=== PATIENT | female | born 1935 | race Caucasian/White ===

== ENCOUNTER 2024-09-17 10:47 | Inpatient (IN) | payer MEDICARE, BC ==
[~2024-09-17] VITALS: Ht 152.4 cm; Wt 51.3 kg
[2024-09-17 10:13] VITALS: BP 143/61
[2024-09-17 10:49] VITALS: BP 143/61
[2024-09-17 16:30] VITALS: BP 107/46; TEMP 97.6; O2SAT 94
[2024-09-17] MEDS ORDERED: CARV6.25 PO (16:37)
[2024-09-17] MEDS ORDERED: ACET-2154 PO (16:37)
[2024-09-17] MEDS ORDERED: ENOX30DI5 SQ (16:37)
[2024-09-17] MEDS ORDERED: ONDA4VIA52 IV (16:37)
[2024-09-17] MEDS ORDERED: PETR113P TP (16:37)
[2024-09-17] MEDS ORDERED: CEPH500C2 PO (16:37)
[2024-09-17] MEDS ORDERED: ATOR10TA PO (16:37)
[2024-09-17] MEDS ORDERED: CARB1TAB21 PO (16:37)
[2024-09-17] MEDS ORDERED: REMEDY ESSENTIAL ZINC PASTE 113 GM TOP PRN (18:00)
[2024-09-17] MEDS ORDERED: ONDANSETRON 4 MG/2 ML VIAL IV PRN (20:45)
[2024-09-17 20:51] VITALS: BP 110/69; TEMP 97.9; O2SAT 93
[2024-09-17] MEDS: ATORVASTATIN 10 MG TABLET PO SCH (21:36)
[2024-09-17] MEDS: TRAMADOL HCL 50 MG TABLET PO PRN (21:36)
[2024-09-17] MEDS: CEphaleXIN 500 MG CAPSULE PO SCH (21:36)
[2024-09-18 06:00] VITALS: BP 139/58; TEMP 97.8; O2SAT 93
[2024-09-18 08:00] VITALS: BP 151/66; TEMP 98.3; O2SAT 95
[2024-09-18] MEDS: CARBIDOPA/LEVODOPA 25-100MG TABLET PO SCH (09:02)
[2024-09-18] MEDS: CARVEDILOL 6.25 MG TABLET PO SCH (09:04)
[2024-09-18] MEDS: ENOXAPARIN SODIUM 30 MG/0.3 ML DISP.SYRIN SQ SCH (09:07)
[2024-09-18] MEDS ORDERED: MIRT-93 PO (11:06)
[2024-09-18] MEDS ORDERED: PRED5DRO24 RIGHTEYE (11:06)
[2024-09-18] MEDS ORDERED: LATA7.5D RIGHTEYE (11:06)
[2024-09-18] MEDS ORDERED: ATRO2DRO4 RIGHTEYE (11:06)
[2024-09-18] MEDS: ATROPINE SULFATE 1% OPHT DROP 2 ML RIGHTEYE SCH (12:55)
[2024-09-18] MEDS: prednisoLONE ACET 1% OPHT DROP 5 ML BOTTLE RIGHTEYE SCH (12:56)
[2024-09-18 16:15] VITALS: BP 113/46; TEMP 98.1; O2SAT 97
[2024-09-18 20:03] VITALS: BP 126/78; TEMP 98.1; O2SAT 93
[2024-09-18] MEDS: MIRTAZAPINE 15 MG TABLET PO SCH (20:14)
[2024-09-18] MEDS: LATANOPROST OPHT DROP 2.5 ML BOTTLE EACHEYE SCH (20:16)
[2024-09-18] MEDS ORDERED: LATANOPROST OPHT DROP 2.5 ML BOTTLE RIGHTEYE SCH (21:00)
[2024-09-19 06:00] VITALS: BP 150/67; TEMP 97.8; O2SAT 95
[2024-09-19 08:00] VITALS: BP 139/70; TEMP 97.2; O2SAT 97
[2024-09-19 15:55] VITALS: BP 119/52; TEMP 98.4; O2SAT 97
[2024-09-19] MEDS: ENSURE ENLIVE (VAN) 240 ML LIQUID PO SCH (17:47)
[2024-09-19 20:00] VITALS: BP 157/60; TEMP 97.5; O2SAT 96
[2024-09-20 07:02] VITALS: BP 164/60
[2024-09-20 07:18] VITALS: BP 159/56; TEMP 98; O2SAT 97
[2024-09-20 08:00] VITALS: BP 147/53; TEMP 97.4; O2SAT 97
[2024-09-20 16:00] VITALS: BP 105/44; TEMP 97.8; O2SAT 97
[2024-09-20 20:07] VITALS: BP 97/35; TEMP 97.9; O2SAT 93
[2024-09-21] MEDS: BISACODYL 5 MG TABLET.DR PO PRN (02:31)
[2024-09-21] MEDS: ACETAMINOPHEN 500 MG TABLET PO PRN (02:32)
[2024-09-21 05:48] VITALS: BP 145/57; TEMP 97.8; O2SAT 94
[2024-09-21 07:49] VITALS: TEMP 98
[2024-09-21 15:09] VITALS: TEMP 97.6
[2024-09-21 20:05] VITALS: BP 114/44; TEMP 97.6; O2SAT 95
[2024-09-22 06:03] VITALS: BP 126/52; TEMP 97.8; O2SAT 95
[2024-09-22 08:00] VITALS: BP 157/90; TEMP 97.8; O2SAT 96
[2024-09-22 15:50] VITALS: BP 107/43; TEMP 97.3; O2SAT 97
[2024-09-22 20:00] VITALS: BP 121/52; TEMP 97.9; O2SAT 95
[2024-09-23 06:00] VITALS: BP 157/69; TEMP 97.7; O2SAT 95
[2024-09-23 07:06] LABS: BASOPHILS # (AUTO) 0.2 K/UL (0.0-0.2); BASOPHILS % (AUTO) 0.8 % (0.0-2.0); EOSINOPHILS # (AUTO) 0.1 K/uL (0.0-0.7); EOSINOPHILS % (AUTO) 0.3 % (0.0-7.0); HEMATOCRIT 31.3 % (31.2-41.9); HEMOGLOBIN 10.8 g/dL (10.9-14.3); LYMPHOCYTES # (AUTO) 5.6 K/uL (0.8-4.8); LYMPHOCYTES % (AUTO) 27.5 % (20.5-51.5); MEAN CORPUSCULAR HEMOGLOBIN 29.7 uug (24.7-32.8); MEAN CORPUSCULAR HGB CONC 35 g/dL (32.3-35.6); MEAN CORPUSCULAR VOLUME 85.7 fL (75.5-95.3); MONOCYTES # (AUTO) 1.3 K/uL (0.1-1.30); MONOCYTES % (AUTO) 6.2 % (0.0-11.0); NEUTROPHILS # (AUTO) 13.2 K/uL (1.8-8.9); NEUTROPHILS % (AUTO) 65.2 % (38.5-71.5); PLATELET COUNT (AUTO) 438 K/uL (179-408); RED BLOOD CELL COUNT(AUTO) 3.65 MIL/uL (3.63-4.92); RED CELL DISTRIBUTION WIDTH 13.9 % (12.3-17.7); WHITE BLOOD COUNT (AUTO) 20.2 K/uL (3.8-11.8)
[2024-09-23 07:07] LABS: DIFFERENTIAL COMMENT 1
[2024-09-23 07:15] LABS: CALCIUM 9.2 mg/dL (8.5-10.1); CARBON DIOXIDE 28 mmol/L (21-32); CHLORIDE 104 mmol/L (98-107); GLUCOSE 113 mg/dL (74-106); POTASSIUM 4.7 mmol/L (3.5-5.1); SODIUM SERUM 141 mmol/L (136-145); UREA NITROGEN, BLOOD 29 mg/dL (7-18)
[2024-09-23 08:00] VITALS: BP 111/31; TEMP 97.6; O2SAT 97
[2024-09-23 16:00] VITALS: BP 99/46; TEMP 97.7; O2SAT 97
[2024-09-23 16:32] LABS: *BILIRUBIN,URIN NEGATIVE (NEGATIVE); *BLOOD, URINE 2+ (NEGATIVE); *CLARITY,URINE CLOUDY (CLEAR); *COLOR,URINE YELLOW (YELLOW); *KETONES,URINE NEGATIVE (NEGATIVE); *PROTEIN,URINE 2+ (NEGATIVE); LEUKOCYTE ESTERASE ,URINE 3+ (NEGATIVE); NITRITE, URINE POSITIVE (NEGATIVE); PH,URINE 7.5 (5.0-8.0); UGLUCOSE NEGATIVE (NEGATIVE)
[2024-09-23 16:44] LABS: BACTERIA,URINE MANY /HPF (NONE SEEN); RBC,URINE 50-80 /HPF (0-3); SQUAMOUS EPITHELIAL CELL,UR FEW /HPF (NONE SEEN); WBC,URINE TNTC /HPF (0-3)
[2024-09-23] MEDS ORDERED: CEFTRIAXONE 500 MG VIAL IV SCH (17:00)
[2024-09-23] MEDS: CEFTRIAXONE 1 G in IV DEXTROSE 5% 50 ML IV SCH (17:50)
[2024-09-23 21:44] VITALS: BP 124/58; TEMP 98.3; O2SAT 99
[2024-09-24 05:41] VITALS: BP 125/44; TEMP 98.1; O2SAT 94
[2024-09-24 07:50] VITALS: BP 128/53; TEMP 97.1; O2SAT 93
[2024-09-24 07:56] LABS: BASOPHILS # (AUTO) 0.1 K/UL (0.0-0.2); BASOPHILS % (AUTO) 0.4 % (0.0-2.0); EOSINOPHILS # (AUTO) 0.1 K/uL (0.0-0.7); EOSINOPHILS % (AUTO) 0.4 % (0.0-7.0); HEMATOCRIT 24.7 % (31.2-41.9); HEMOGLOBIN 8.8 g/dL (10.9-14.3); LYMPHOCYTES # (AUTO) 3.4 K/uL (0.8-4.8); LYMPHOCYTES % (AUTO) 26.8 % (20.5-51.5); MEAN CORPUSCULAR HEMOGLOBIN 30.5 uug (24.7-32.8); MEAN CORPUSCULAR HGB CONC 36 g/dL (32.3-35.6); MEAN CORPUSCULAR VOLUME 85.9 fL (75.5-95.3); MONOCYTES # (AUTO) 0.9 K/uL (0.1-1.30); MONOCYTES % (AUTO) 6.8 % (0.0-11.0); NEUTROPHILS # (AUTO) 8.4 K/uL (1.8-8.9); NEUTROPHILS % (AUTO) 65.6 % (38.5-71.5); PLATELET COUNT (AUTO) 334 K/uL (179-408); RED BLOOD CELL COUNT(AUTO) 2.87 MIL/uL (3.63-4.92); RED CELL DISTRIBUTION WIDTH 13.9 % (12.3-17.7); WHITE BLOOD COUNT (AUTO) 12.8 K/uL (3.8-11.8)
[2024-09-24 08:09] LABS: DIFFERENTIAL COMMENT 1
[2024-09-24] MEDS: NUTRISOURCE FIBER 4 GM PACKET PO SCH (09:17)
[2024-09-24 16:08] VITALS: BP 104/61; TEMP 97.8; O2SAT 93
[2024-09-24 21:38] VITALS: BP 105/45; TEMP 99; O2SAT 94
[2024-09-25 06:38] VITALS: BP 106/45; TEMP 98.3; O2SAT 95
[2024-09-25 08:00] VITALS: BP 122/54; TEMP 97.8; O2SAT 93
[2024-09-25] MEDS: ENOXAPARIN SODIUM 40 MG/0.4 ML DISP.SYRIN SQ SCH (12:45)
[2024-09-25 16:00] VITALS: BP 105/48; TEMP 98; O2SAT 96
[2024-09-25 20:00] VITALS: BP 136/53; TEMP 97.9; O2SAT 95
[2024-09-26 06:00] VITALS: BP 138/55; TEMP 98.2; O2SAT 95
[2024-09-26 08:44] VITALS: BP 148/62; TEMP 98.3; O2SAT 92
[2024-09-26 15:39] VITALS: BP 105/50; TEMP 98.4; O2SAT 91
[2024-09-26 21:53] VITALS: BP 104/48; TEMP 97.7; O2SAT 94
[2024-09-26 23:10] VITALS: BP 142/64
[2024-09-27 06:31] VITALS: BP 148/54; TEMP 98.2; O2SAT 96
[2024-09-27 07:35] LABS: BASOPHILS # (AUTO) 0.1 K/UL (0.0-0.2); BASOPHILS % (AUTO) 0.6 % (0.0-2.0); EOSINOPHILS # (AUTO) 0.1 K/uL (0.0-0.7); EOSINOPHILS % (AUTO) 0.9 % (0.0-7.0); HEMATOCRIT 27.5 % (31.2-41.9); HEMOGLOBIN 9.4 g/dL (10.9-14.3); LYMPHOCYTES # (AUTO) 3.6 K/uL (0.8-4.8); LYMPHOCYTES % (AUTO) 26.5 % (20.5-51.5); MEAN CORPUSCULAR HEMOGLOBIN 29.7 uug (24.7-32.8); MEAN CORPUSCULAR HGB CONC 34 g/dL (32.3-35.6); MEAN CORPUSCULAR VOLUME 86.9 fL (75.5-95.3); MONOCYTES # (AUTO) 0.9 K/uL (0.1-1.30); MONOCYTES % (AUTO) 6.5 % (0.0-11.0); NEUTROPHILS # (AUTO) 8.9 K/uL (1.8-8.9); NEUTROPHILS % (AUTO) 65.5 % (38.5-71.5); PLATELET COUNT (AUTO) 367 K/uL (179-408); RED BLOOD CELL COUNT(AUTO) 3.17 MIL/uL (3.63-4.92); RED CELL DISTRIBUTION WIDTH 13.9 % (12.3-17.7); WHITE BLOOD COUNT (AUTO) 13.6 K/uL (3.8-11.8)
[2024-09-27 07:38] LABS: DIFFERENTIAL COMMENT 1
[2024-09-27 07:48] LABS: CALCIUM 8.4 mg/dL (8.5-10.1); CARBON DIOXIDE 30 mmol/L (21-32); CHLORIDE 105 mmol/L (98-107); CREATININE 0.9 mg/dL (0.6-1.3); GLUCOSE 95 mg/dL (74-106); MAGNESIUM 2.2 mg/dL (1.8-2.4); PHOSPHOROUS 3.5 mg/dL (2.5-4.9); SODIUM SERUM 141 mmol/L (136-145); UREA NITROGEN, BLOOD 37 mg/dL (7-18)
[2024-09-27 08:00] VITALS: BP 138/56; TEMP 97.3; O2SAT 97
[2024-09-27 16:00] VITALS: BP 96/35; TEMP 97.8; O2SAT 97
[2024-09-27] MEDS ORDERED: CEFEPIME HCL 1 G in IV DEXTROSE 5% 50 ML IV SCH (17:30)
[2024-09-27] MEDS: CEFEPIME HCL 1 G in IV DEXTROSE 5% 50 ML IV SCH (18:48)
[2024-09-27 21:07] VITALS: BP 119/51; TEMP 99.8; O2SAT 92
[2024-09-27 22:16] VITALS: TEMP 98.1
[2024-09-28 07:26] VITALS: BP 107/56; TEMP 99.8; O2SAT 95
[2024-09-28 09:00] VITALS: BP 129/58; TEMP 98.1; O2SAT 95
[2024-09-28 17:00] VITALS: BP 106/49; TEMP 98.6; O2SAT 95
[2024-09-28 19:49] VITALS: BP 121/42; TEMP 98.1; O2SAT 94
[2024-09-29 05:12] VITALS: BP 145/63; TEMP 98.2; O2SAT 94
[2024-09-29 07:56] LABS: BASOPHILS # (AUTO) 0.1 K/UL (0.0-0.2); BASOPHILS % (AUTO) 0.6 % (0.0-2.0); EOSINOPHILS # (AUTO) 0.1 K/uL (0.0-0.7); EOSINOPHILS % (AUTO) 0.8 % (0.0-7.0); HEMATOCRIT 28.2 % (31.2-41.9); HEMOGLOBIN 9.6 g/dL (10.9-14.3); LYMPHOCYTES # (AUTO) 3.5 K/uL (0.8-4.8); LYMPHOCYTES % (AUTO) 29.6 % (20.5-51.5); MEAN CORPUSCULAR HEMOGLOBIN 29.4 uug (24.7-32.8); MEAN CORPUSCULAR HGB CONC 34 g/dL (32.3-35.6); MEAN CORPUSCULAR VOLUME 86.6 fL (75.5-95.3); MONOCYTES # (AUTO) 0.8 K/uL (0.1-1.30); MONOCYTES % (AUTO) 6.4 % (0.0-11.0); NEUTROPHILS # (AUTO) 7.4 K/uL (1.8-8.9); NEUTROPHILS % (AUTO) 62.6 % (38.5-71.5); PLATELET COUNT (AUTO) 430 K/uL (179-408); RED BLOOD CELL COUNT(AUTO) 3.25 MIL/uL (3.63-4.92); RED CELL DISTRIBUTION WIDTH 14.1 % (12.3-17.7); WHITE BLOOD COUNT (AUTO) 11.9 K/uL (3.8-11.8)
[2024-09-29 08:00] VITALS: TEMP 97.8
[2024-09-29 08:09] LABS: CALCIUM 8.8 mg/dL (8.5-10.1); CARBON DIOXIDE 29 mmol/L (21-32); CHLORIDE 106 mmol/L (98-107); CREATININE 0.9 mg/dL (0.6-1.3); GLUCOSE 99 mg/dL (74-106); POTASSIUM 3.9 mmol/L (3.5-5.1); SODIUM SERUM 142 mmol/L (136-145); UREA NITROGEN, BLOOD 34 mg/dL (7-18)
[2024-09-29 08:13] LABS: DIFFERENTIAL COMMENT 1
[2024-09-29] MEDS ORDERED: MAGNESIUM HYDROXIDE 30 ML LIQUID UDC PO PRN (12:00)
[2024-09-29 16:42] VITALS: TEMP 97.7
[2024-09-29 20:00] VITALS: BP 121/59; TEMP 97.7; O2SAT 95
[2024-09-30] MEDS: levoFLOXacin 250 MG TABLET PO SCH (05:52)
[2024-09-30 06:00] VITALS: BP 126/48; TEMP 98.2; O2SAT 95
[2024-09-30 07:50] VITALS: BP 132/49; TEMP 97.1; O2SAT 93
[2024-09-30 16:06] VITALS: BP 100/49; TEMP 98.7; O2SAT 94
[2024-09-30 20:00] VITALS: BP 141/63; TEMP 98; O2SAT 95
[2024-10-01 07:19] VITALS: BP 147/63; TEMP 98.1; O2SAT 95
[2024-10-01 08:00] VITALS: BP 149/49; TEMP 98.7; O2SAT 93
[2024-10-01 08:15] VITALS: BP 149/55
== END 2024-10-01 15:20 | disposition home health service (06) | DRG 560 ==
LOC: EDBD
PROVIDERS: ADMIT Physical Medicine & Rehabilitation Pain Medicine; ATTEND Physical Medicine & Rehabilitation Pain Medicine
DX: Z47.1 Aftercare following joint replacement surgery (principal); E44.0 Moderate protein-calorie malnutrition; N39.0 Urinary tract infection, site not specified; R64 Cachexia; Z96.642 Presence of left artificial hip joint; E78.5 Hyperlipidemia, unspecified; G20.A1 Parkinson's disease without dyskinesia, without mention of fluctuations; I10 Essential (primary) hypertension; Z22.322 Carrier or suspected carrier of Methicillin resistant Staphylococcus aureus; M19.90 Unspecified osteoarthritis, unspecified site; Z91.81 History of falling; B96.5 Pseudomonas (aeruginosa) (mallei) (pseudomallei) as the cause of diseases classified elsewhere; Z68.22 Body mass index [BMI] 22.0-22.9, adult; R29.6 Repeated falls; Z88.8 Allergy status to other drugs, medicaments and biological substances
CPT/HCPCS: 36415; 70450; 73502; 83735; 84100; 85025; 87077; 87086; 97535-GO-CO; A4663; A6209; A9150; C1758; J0692; J0696; J1650; J2650